=== PATIENT | male | born 1960 | race Caucasian/White ===

== ENCOUNTER 2024-08-23 20:24 | Inpatient (IN) | payer MEDICAID ==
[~2024-08-23] VITALS: Ht 170.2 cm; Wt 63.3 kg
[2024-08-23] MEDS ORDERED: TRAZ-182 PO (20:55)
[2024-08-23] MEDS ORDERED: QUET25TA PO (20:55)
[2024-08-23 21:07] LABS: BASOPHILS % (AUTO) 0.4 % (0.0-2.0); EOSINOPHILS % (AUTO) 0.2 % (0.0-7.0); HEMATOCRIT 45.3 % (36.7-47.1); HEMOGLOBIN 15.4 g/dL (12.5-16.3); LYMPHOCYTES # (AUTO) 1.4 K/uL (0.8-4.8); MEAN CORPUSCULAR HGB CONC 34 g/dL (32.5-36.3); MEAN CORPUSCULAR VOLUME 94.1 fL (73.0-96.2); MONOCYTES # (AUTO) 0.8 K/uL (0.1-1.30); MONOCYTES % (AUTO) 7.4 % (0.0-11.0); NEUTROPHILS # (AUTO) 8.5 K/uL (1.8-8.9); PLATELET COUNT (AUTO) 247 K/uL (152-348); RED BLOOD CELL COUNT(AUTO) 4.81 MIL/uL (4.06-5.63); WHITE BLOOD COUNT (AUTO) 10.7 K/uL (3.6-10.2)
[2024-08-23 21:10] LABS: DIFFERENTIAL COMMENT 1
[2024-08-23 21:20] LABS: CALCIUM 10.1 mg/dL (8.5-10.1); CARBON DIOXIDE 19 mmol/L (21-32); CHLORIDE 98 mmol/L (98-107); CREATININE 1.5 mg/dL (0.6-1.3); GLUCOSE 99 mg/dL (74-106); POTASSIUM 4.1 mmol/L (3.5-5.1); SODIUM SERUM 137 mmol/L (136-145); UREA NITROGEN, BLOOD 26 mg/dL (7-18)
[2024-08-23 21:21] LABS: ETHANOL < 3 MG/DL (0-10)
[2024-08-23 21:37] LABS: ALANINE AMINOTRANSFERASE 10 U/L (16-63); ALBUMIN 4.4 g/dL (3.4-5.0); ALKALINE PHOSPHATASE 94 U/L (50-136); ASPARTATE AMINOTRANSFERASE 19 U/L (15-37); BILIRUBIN,TOTAL 0.9 mg/dL (0.2-1.0); TOTAL PROTEIN, SERUM 8.5 g/dL (6.4-8.2)
[2024-08-23 21:46] LABS: ACETAMINOPHEN < 2.0 ug/mL (10-30)
[2024-08-23 23:01] LABS: ABG BASE EXCESS -6.3 mmol/L (-2.0-3.0); ABG HCO3 13.3 mmol/L (21.0-28.0); ABG PH 7.512 (7.350-7.450); ABG PO2 107.6 mmHg (83.0-108.0); ABG SITE LEFT RADIAL; ABG TOTAL HEMOGLOBIN 15.8 G/dL (13.5-17.5); AaDO2 98.5 mmHg; COHb 0.7 % (0.5-1.5); O2Hb 97.5 % (94.0-98.0)
[2024-08-23 23:21] LABS: LACTIC ACID 2.4 mmol/L (0.4-2.0)
[2024-08-24] MEDS: IV NS 1000 ML 1,000 ML IV ONE (04:56)
[2024-08-24] MEDS ORDERED: MAGNESIUM HYDROXIDE 30 ML LIQUID UDC PO PRN (06:00)
[2024-08-24] MEDS ORDERED: ACETAMINOPHEN 325 MG TABLET PO PRN (06:00)
[2024-08-24 07:16] LABS: BASOPHILS # (AUTO) 0.1 K/UL (0.0-0.2); BASOPHILS % (AUTO) 0.6 % (0.0-2.0); EOSINOPHILS % (AUTO) 0.2 % (0.0-7.0); HEMATOCRIT 46.9 % (36.7-47.1); LYMPHOCYTES # (AUTO) 1.6 K/uL (0.8-4.8); LYMPHOCYTES % (AUTO) 12.5 % (20.5-51.5); MEAN CORPUSCULAR HGB CONC 34 g/dL (32.5-36.3); MEAN CORPUSCULAR VOLUME 93.8 fL (73.0-96.2); MONOCYTES % (AUTO) 7.7 % (0.0-11.0); NEUTROPHILS # (AUTO) 10.1 K/uL (1.8-8.9); PLATELET COUNT (AUTO) 284 K/uL (152-348); WHITE BLOOD COUNT (AUTO) 12.8 K/uL (3.6-10.2)
[2024-08-24 07:22] LABS: DIFFERENTIAL COMMENT 1
[2024-08-24 07:26] LABS: CALCIUM 10.3 mg/dL (8.5-10.1); CREATININE 1.5 mg/dL (0.6-1.3); MAGNESIUM 2.1 mg/dL (1.8-2.4); PHOSPHOROUS 2.8 mg/dL (2.5-4.9); POTASSIUM 4.1 mmol/L (3.5-5.1)
[2024-08-24] MEDS: IV NS 1000 ML 1,000 ML IV PRN ×2 (09:45→23:20)
[2024-08-24] MEDS ORDERED: PANTOPRAZOLE SODIUM 40 MG VIAL ONE (09:52)
[2024-08-24] MEDS ORDERED: ONDANSETRON 4 MG/2 ML VIAL ONE (09:52)
[2024-08-24] MEDS: ONDANSETRON 4 MG/2 ML VIAL IV PRN (09:56)
[2024-08-24] MEDS: PANTOPRAZOLE SODIUM 40 MG VIAL IV SCH (09:56)
[2024-08-24 13:01] LABS: *BLOOD, URINE 1+ (NEGATIVE); *CLARITY,URINE CLEAR (CLEAR); *COLOR,URINE YELLOW (YELLOW); *KETONES,URINE 4+ (NEGATIVE); *PROTEIN,URINE 1+ (NEGATIVE); *UROBILINOGEN,URINE 0.2 E.U./dl (NORMAL); LEUKOCYTE ESTERASE ,URINE NEGATIVE (NEGATIVE); NITRITE, URINE NEGATIVE (NEGATIVE); UGLUCOSE NEGATIVE (NEGATIVE)
[2024-08-24 13:06] LABS: *BILIRUBIN,URIN 1+ (NEGATIVE)
[2024-08-24 13:18] LABS: BACTERIA,URINE FEW /HPF (NONE SEEN); RBC,URINE 0-3 /HPF (0-3); SQUAMOUS EPITHELIAL CELL,UR FEW /HPF (NONE SEEN); WBC,URINE 0-3 /HPF (0-3)
[2024-08-24 15:52] VITALS: BP 145/83; TEMP 97.4; O2SAT 99
[2024-08-24 20:00] VITALS: BP 144/73; TEMP 98.3; O2SAT 100
[2024-08-25] VITALS: BP 137/66; TEMP 98.7; O2SAT 99
[2024-08-25 04:00] VITALS: BP 148/71; TEMP 98.6; O2SAT 96
[2024-08-25 08:00] VITALS: BP 145/70; TEMP 97.8; O2SAT 98
[2024-08-25] MEDS ORDERED: THIAMINE HCL INJ 100 MG in IV DEXTROSE 5% 50 ML IV SCH (10:45)
[2024-08-25] MEDS: CIPROFLOXACIN 0.3% OPHT DROP 2.5 ML BOTTLE RIGHTEYE SCH (12:50)
[2024-08-25] MEDS: THIAMINE HCL 100 MG TABLET PO SCH (12:50)
[2024-08-25 16:00] VITALS: BP 156/64; TEMP 98.2; O2SAT 97
[2024-08-25] MEDS: LORAZEPAM 1 MG TABLET PO PRN (16:02)
[2024-08-25 19:10] VITALS: BP 120/65; TEMP 97.9; O2SAT 97
[2024-08-25] MEDS: IV D5/ 0.9% NACL 1,000 ML IV SCH (19:47)
[2024-08-26 06:06] VITALS: BP 119/73; TEMP 98; O2SAT 98
[2024-08-26] MEDS: PANTOPRAZOLE SODIUM 40 MG TABLET.DR PO SCH (06:28)
[2024-08-26 06:47] LABS: BASOPHILS % (AUTO) 0.4 % (0.0-2.0); EOSINOPHILS # (AUTO) 0.2 K/uL (0.0-0.7); HEMATOCRIT 34.3 % (36.7-47.1); HEMOGLOBIN 12.3 g/dL (12.5-16.3); LYMPHOCYTES # (AUTO) 1.9 K/uL (0.8-4.8); LYMPHOCYTES % (AUTO) 22.5 % (20.5-51.5); MEAN CORPUSCULAR HEMOGLOBIN 33.1 uug (23.8-33.4); MEAN CORPUSCULAR HGB CONC 36 g/dL (32.5-36.3); MEAN CORPUSCULAR VOLUME 92.5 fL (73.0-96.2); MONOCYTES # (AUTO) 0.7 K/uL (0.1-1.30); MONOCYTES % (AUTO) 8.6 % (0.0-11.0); NEUTROPHILS # (AUTO) 5.5 K/uL (1.8-8.9); NEUTROPHILS % (AUTO) 66.5 % (38.5-71.5); PLATELET COUNT (AUTO) 203 K/uL (152-348); RED BLOOD CELL COUNT(AUTO) 3.71 MIL/uL (4.06-5.63); RED CELL DISTRIBUTION WIDTH 13.5 % (12.1-16.2); WHITE BLOOD COUNT (AUTO) 8.3 K/uL (3.6-10.2)
[2024-08-26 06:56] LABS: DIFFERENTIAL COMMENT 1
[2024-08-26 06:59] LABS: ALBUMIN 3.1 g/dL (3.4-5.0); BILIRUBIN,DIRECT 0.2 mg/dL (0.0-0.2); BILIRUBIN,TOTAL 0.7 mg/dL (0.2-1.0); CALCIUM 8.6 mg/dL (8.5-10.1); MAGNESIUM 1.8 mg/dL (1.8-2.4); PHOSPHOROUS 3.1 mg/dL (2.5-4.9); POTASSIUM 3.7 mmol/L (3.5-5.1); TOTAL PROTEIN, SERUM 6.4 g/dL (6.4-8.2)
[2024-08-26 07:08] LABS: THYROID STIMULATING HORMONE 1.191 mIU/mL (0.358-3.740)
[2024-08-26 12:00] VITALS: BP 139/67; TEMP 97.6; O2SAT 97
[2024-08-27 07:07] LABS: PTH, INTACT 15 pg/mL (15-65)
== END 2024-08-26 13:45 | disposition home or self-care (01) | DRG 421 ==
LOC: ER 20:24 → EDBD 08-24 09:42 → TRANSITION 08-24 09:42 → TELE3 08-24 14:50 → MEDSURG3 08-25 11:06
PROVIDERS: ATTEND Nurse Practitioner Acute Care
DX: E51.2 Wernicke's encephalopathy (principal); N17.0 Acute kidney failure with tubular necrosis; G93.41 Metabolic encephalopathy; E87.4 Mixed disorder of acid-base balance; M89.8X9 Other specified disorders of bone, unspecified site; H10.89 Other conjunctivitis; F10.20 Alcohol dependence, uncomplicated; D72.829 Elevated white blood cell count, unspecified; F99 Mental disorder, not otherwise specified
CPT/HCPCS: 36415; 36600; 70450; 71045; 76770; 82803; 83605; 83735; 83970; 84100; 84155; 84165; 84443; 85025; 87040; A4606; A4663; C1758; G0378; G0480; J2405; J2470; J3490; J7040; J7042